=== PATIENT | female | born 1965 | race Caucasian/White ===

== ENCOUNTER 2017-01-09 18:05 | Emergency (ER) | payer OTHER ==
[2017-01-09 19:14] VITALS: BP 160/79; PULSE 96; RESP 16; TEMP 98.4; O2SAT 96
--- NOTE | 2017-01-09 21:12 | ED PDOC ---
HPI: Headache Time Seen by Provider: 01/09/17 19:00 Chief Complaint (Nursing): Headache Chief Complaint (Provider): Headache History Per: Patient History/Exam Limitations: no limitations Onset/Duration Of Symptoms: Days (2 days) Current Symptoms Are (Timing): Still Present Severity: Moderate Pain Scale Rating Of: 8 Associated Symptoms: Nausea, Other (dizziness; denies numbness or tingling). denies: Vomiting Additional Complaint(s): Divina Ireland is a 51 year old female, with a past medical history of hypertension, who presents to the emergency department for the evaluation of a headache, that the patient has been experiencing for 2 days. Patient sent to emergency department for CAT scan of the brain because she hit her head on a fridge. Associated dizziness and nausea are currently present. Denies vomiting, numbness, or tingling. PMD: [place] Past Medical History Reviewed: Historical Data, Nursing Documentation, Vital Signs Vital Signs: Last Vital Signs Temp 98.4 F 01/09/17 19:11 Pulse 96 H 01/09/17 19:11 Resp 16 01/09/17 19:11 BP 160/79 H 01/09/17 19:11 Pulse Ox 96 01/09/17 19:11 - Medical History PMH: Arthritis, HTN Denies: Chronic Kidney Disease - Surgical History Surgical History: Cholecystectomy, Hernia Repair, - Family History Family History: States: No Known Family Hx - Social History Current smoker - smoking cessation education provided: No Ex-Smoker (has not smoked in the last 12 months): No Alcohol: Occasional Drugs: Denies - Immunization History Hx Tetanus Toxoid Vaccination: No Hx Influenza Vaccination: No Hx Pneumococcal Vaccination: No - Home Medications Home Medications: Ambulatory Orders Medication Instructions Recorded Valsartan/Hydrochlorothiazide 1 tab PO DAILY 11/17/15 [Valsartan and Hydrochlorothiazide 25 mg-160 M] - Allergies Allergies/Adverse Reactions: Allergies Allergy/AdvReac Type Severity Reaction Status Date / Time No Known Allergies Allergy Verified 01/09/17 19:11 Review of Systems ROS Statement: Except As Marked, All Systems Reviewed And Found Negative Gastrointestinal: Positive for: Nausea. Negative for: Vomiting Musculoskeletal: Positive for: Other (head pain) Neurological: Positive for: Headache, Dizziness. Negative for: Numbness, Other (tingling) Physical Exam - Reviewed Nursing Documentation Reviewed: Yes Vital Signs Reviewed: Yes - Physical Exam Appears: Positive for: Non-toxic, No Acute Distress Head Exam: Positive for: ATRAUMATIC, NORMAL INSPECTION, NORMOCEPHALIC Skin: Positive for: Normal Color, Warm, Dry Eye Exam: Positive for: Normal appearance, EOMI Neck: Positive for: Normal, Painless ROM Cardiovascular/Chest: Positive for: Regular Rate, Rhythm. Negative for: Murmur Respiratory: Positive for: Normal Breath Sounds. Negative for: Respiratory Distress Gastrointestinal/Abdominal: Positive for: Normal Exam, Soft. Negative for: Tenderness Extremity: Positive for: Normal ROM. Negative for: Tenderness Neurologic/Psych: Positive for: Alert, service center assistant II-XII, Oriented, Gait (stable). Negative for: Motor/Sensory Deficits, Aphasia, Facial Droop - ECG O2 Sat by Pulse Oximetry: 96 (RA) Pulse Ox Interpretation: Normal - CT Scan/US CT Head Other Rad Studies (CT/US): Interpreted By Me, Read By Radiologist, Radiology Report Reviewed Medical Decision Making Medical Decision Makin:22 Initial Impression: Head pain rule out traumatic bleed Initial Plan: * CT Head w/o Contrast * Reevaluation 20:34 CT Head w/o Contrast Results FINDINGS: Brain: Mild volume loss No hemorrhage. No significant white matter disease. No edema. Ventricles: Unremarkable. No ventriculomegaly. Bones/joints: Unremarkable. No acute fracture. Soft tissues: Unremarkable. Sinuses: Unremarkable as visualized. No acute sinusitis. Mastoid air cells: Unremarkable as visualized. No mastoid effusion. IMPRESSION: No intracranial hemorrhage.Please see discussion above. 21:55 Provider prompted patient to refer to outpatient neurology and she is in agreement with the plan. Patient feels better and is neurologically intact. dc home with family instructed to return immediately if dizziness vomiting or altered mental status Scribe Attestation: Documented by Jose Obrien, acting as a scribe for Jennifer Bhandari MD. Provider Scribe Attestation: All medical record entries made by the Scribe were at my direction and personally dictated by me. I have reviewed the chart and agree that the record accurately reflects my personal performance of the history, physical exam, medical decision making, and the department course for this patient. I have also personally directed, reviewed, and agree with the discharge instructions and disposition. Disposition - Clinical Impression Clinical Impression: Headache - Patient ED Disposition Is Patient to be Admitted: No Counseled Patient/Family Regarding: Studies Performed, Diagnosis, Need For Followup - Disposition Referrals: [facility] [Outside] Anton Kennedy MD [Medical Doctor] - Disposition: Routine/Home Disposition Time: 21:00 Condition: STABLE Additional Instructions: follow up with neurologist for further testing and workup return to the ED with any worsening or concerning symptoms. Instructions: General Headache (ED) Print Language: AZERI
--- NOTE | 2017-01-10 08:27 | CT ---
PROCEDURE: CT HEAD WITHOUT CONTRAST. HISTORY: COMPARISON: None available. TECHNIQUE: Axial computed tomography images were obtained through the head/brain without intravenous contrast. Radiation dose: Total exam DLP = 786.79 mGy-cm. This CT exam was performed using one or more of the following dose reduction techniques: Automated exposure control, adjustment of the mA and/or kV according to patient size, and/or use of iterative reconstruction technique. FINDINGS: HEMORRHAGE: No intracranial hemorrhage. BRAIN: No mass effect or edema. No atrophy or chronic microvascular ischemic changes. VENTRICLES: Unremarkable. No hydrocephalus. CALVARIUM: Unremarkable. PARANASAL SINUSES: Unremarkable as visualized. No significant inflammatory changes. MASTOID AIR CELLS: Unremarkable as visualized. No inflammatory changes. OTHER FINDINGS: None. IMPRESSION: No intracranial hemorrhage. No intracranial mass or evidence of acute infarct. Preliminary interpretation of this examination was reported by [facility] at 8:34 p.m. on 01/09/2017. There is concurrence of this report with the preliminary interpretation.
== END 2017-01-09 22:26 | disposition home or self-care (01) ==
LOC: H.ER 18:05
DX: R51 Headache (principal); R42 Dizziness and giddiness; I10 Essential (primary) hypertension; R11.0 Nausea